=== PATIENT | female | born 1965 | race Caucasian/White ===

== ENCOUNTER 2018-05-31 16:00 | Outpatient (RCR) | payer OTHER, SELFPAY ==
--- NOTE | 2018-05-09 17:09 | HMH.PTOPEV ---
PT Outpatient Evaluation Rehab PT Outpatient Evaluation Start: 05/09/18 16:34 Freq: Status: Active Protocol: Document 05/09/18 16:34 VICK (Rec: 05/09/18 17:08 VICK [id number]) Electronically Signed By Javid Coombs, PT 05/09/18 16:34 Outpatient Therapy Subjective History Subjective History Pt. reports pain in the lower cervical spine region with radicular symptoms present in both arms. Pt. reports insidious onset of pain approximately one month ago. No recent diagnostics to report. Comorbidities include multiple joint OA and hx of lumbar spine bulging discs. Chief Complaint Pain Paresthesia Symptom Type Burning Tingling Symptoms Relieved By OTC Meds Activity Symptoms Aggravated By Sitting Prior Functional Limitations None Current Functional Limitations Desk Work/Reading Sleeping Symptom Description Constant but Variable Pain at Rest Activity Dependent Level of pain today (0-10) 8 Pain scale - at its best (0-10) 6 Pain scale - at its worst (0-10) 10 Cervical Eval Palpation Cervical Muscles R Cervical Paraspinal L Cervical Paraspinal R CT Junction L CT Junction Cervical/Thoracic Palpation Findings Tenderness Posture Head/C-Spine Posture Sitting Position Flexed Head/C-Spine Posture Standing Position Flexed Excess Extension Flexibility Deficits Upper Trapezius Muscle Length (R) Mild Tightness (L) Mild Tightness Pectoralis Minor Muscle Length (R) Mild Tightness (L) Mild Tightness Passive Joint Mobility Cervical PIVM Dec: L C4/5 L C5/6 L C6/7 WNL: R C4/5 R C5/6 R C6/7 AROM Cervical Spine Extension Active Range of WNL Motion (degrees) Cervical Spine Flexion Active Range of WNL Motion (degrees) Cervical Spine Right Lateral Flexion 38 Active Range of Motion (degrees) Cervical Spine Left Lateral Flexion 35 Active Range of Motion (degrees) Cervical Spine Right Rotation Active WNL Range of Motion (degrees)
== END 2018-05-31 16:01 | disposition home or self-care (01) ==
LOC: PT 16:00
PROVIDERS: Family Provider Family Medicine; PCP Family Medicine; Visit Provider Family Medicine
DX: M48.9 Spondylopathy, unspecified (principal)
CPT/HCPCS: 97010; 97012; 97014; 97110; 97163; G0283

== ENCOUNTER → 2019-04-29 16:33 | Outpatient (CLI) | payer BC, SELFPAY ==
--- NOTE | 2019-04-29 16:35 | MM_ITS ---
MM Dig screening mamm BI w/CAD ORDERING PHYSICIAN : Ariana Sexton PATIENT AGE: 54 years GENDER: Female COMPARISON: . August 2017, April 2016, December 2014, October 2012 INDICATION: Routine screening mammogram. No hormones. No new complaints. Family history. niece with breast cancer TECHNIQUE: Standard CC and MLO images were obtained. R2 CAD reviewed. Additional axillary cc views bilaterally included FINDINGS: Mild/Moderate breast density residual fibroglandular elements are most evident towards upper-outer quadrant right and left breast. No suspicious or dominant mass. No suspicious calcifications in either breast. . IMPRESSION: ...... Stable bilateral mammogram with no significant new findings. No new areas of concern Follow follow-up in one year recommended BI-RADS Category: 1 Negative RECOMMENDED FOLLOW-UP: 1YR 1 YEAR FOLLOW-UP (A letter has been sent to the patient regarding results of the study.)
== END ==
PROVIDERS: PCP Family Medicine; Visit Provider Obstetrics & Gynecology Gynecology
DX: Z12.31 Encounter for screening mammogram for malignant neoplasm of breast (principal)
CPT/HCPCS: 77067

== ENCOUNTER → 2020-05-01 16:11 | Outpatient (CLI) | payer BC, SELFPAY ==
--- NOTE | 2020-05-01 16:16 | MM_ITS ---
PROCEDURE: MM DIG SCREENING MAMM BI W/CAD Digital Breast Tomosynthesis Included CLINICAL INDICATION: SCREENING There is a history of breast cancer patient's niece diagnosed at age 32. COMPARISON: MG DMSB DIG MAMM-SCREEN REBEKAH from 05/09/2016 MG DMSB DIG MAMM-SCREEN REBEKAH W/CAD from 09/11/2017 MG DIG MAMM-SCREEN REBEKAH from 04/29/2019 TECHNIQUE: Standard CC and MLO images and 3D Tomosynthesis was obtained. R2 CAD reviewed. FINDINGS: Scattered diffuse fibroglandular densities are seen throughout both breasts and the findings are bilateral and symmetrical. There is no new or suspicious lesion in either breast and no suspicious microcalcifications. IMPRESSION: Fibrofatty parenchyma with no suspicious lesions seen BI-RAD Category: 1 Negative FOLLOW-UP: 1YR 1 Year Follow-up (A letter has been sent to the patient regarding results of the study.) Dictated Dr. Tulio Henson MD 05/05/2020 09:28 Dr. Tulio Khan MD in [facility] 05/05/2020 09:28
== END ==
PROVIDERS: PCP Family Medicine; Visit Provider Obstetrics & Gynecology Gynecology
DX: Z12.31 Encounter for screening mammogram for malignant neoplasm of breast (principal)
CPT/HCPCS: 77063; 77067

== ENCOUNTER → 2022-05-11 16:55 | Outpatient (CLI) | payer BC, SELFPAY ==
--- NOTE | 2022-05-11 17:04 | XR_ITS ---
PROCEDURE INFORMATION: Exam: XR Chest Exam date and time: 05/11/2022 5:14 PM Age: 57 years old Clinical indication: Pain; Left-sided; Additional info: Rib pain TECHNIQUE: Imaging protocol: Radiologic exam of the chest. Views: 2 views. COMPARISON: No relevant prior studies available. FINDINGS: Lungs: No lobar consolidation, pleural effusion or pulmonary edema. Pleural spaces: See Lungs finding. Heart/Mediastinum: Unremarkable. No cardiomegaly. Bones/joints: No visualized fracture. No pneumothorax. IMPRESSION: 1. No lobar consolidation, pleural effusion or pulmonary edema. 2. No visualized fracture. No pneumothorax.
== END ==
PROVIDERS: PCP Nurse Practitioner Family; Visit Provider Nurse Practitioner Family
DX: M85.80 Other specified disorders of bone density and structure, unspecified site (principal); R07.81 Pleurodynia
CPT/HCPCS: 71046

== ENCOUNTER → 2022-05-17 09:32 | Outpatient (CLI) | payer BC, SELFPAY ==
--- NOTE | 2022-05-17 09:36 | XR_ITS ---
FINAL REPORT TECHNIQUE: Bone densitometry calculations of the lumbar spine and left hip were obtained. CLINICAL HISTORY: osteopenia FINDINGS: DEXA BONE DENSITY AXIAL SKELETON Using L1-4, the bone mineral density of the spine is 0.911 g/cm2, corresponding to T-score of -1.2. Using the left hip, the bone mineral density of the femoral neck is 0.591 g/cm2, corresponding to a T-score of -2.3. NOTE: T-score: Standard deviation compared with peak bone mass of young adult mean. *Following the recommendations of the International Society of Bone densitometry, classification of hip BMD is based on the lower of two T-scores; total hip or femoral neck. IMPRESSION: Diminished bone mineral density of the lumbar spine and left hip consistent with osteopenia. FRAX 10 year fracture risk is 2.6% for a hip fracture and 16% for a major osteoporotic fracture. Reviewed, Interpreted and Dictated by Blu Sotelo MD Transcribed by Chelo Lee Authenticated and [facility]
== END ==
PROVIDERS: PCP Nurse Practitioner Family; Visit Provider Nurse Practitioner Family
DX: M85.89 Other specified disorders of bone density and structure, multiple sites (principal); R07.81 Pleurodynia
CPT/HCPCS: 77080

== ENCOUNTER → 2023-04-11 08:06 | Outpatient (CLI) | payer BC, SELFPAY ==
--- NOTE | 2023-04-11 08:10 | MM_ITS ---
PROCEDURE INFORMATION: Exam: MG Bilateral Screening 3D Mammography Exam date and time: 04/11/2023 8:10 AM Age: 57 years old Clinical indication: Screening examination TECHNIQUE: Imaging protocol: Bilateral Screening tomosynthesis and 2D mammography including computer-aided detection (CAD) when performed. COMPARISON: 1. MG MM DIG SCREENING MAMM BI W/CAD 05/01/2020 4:19 PM 2. MG MM DIG SCREENING MAMM BI W/CAD 04/29/2019 4:39 PM FINDINGS: MAMMOGRAPHY: Breast composition: The breasts are almost entirely fatty. Mass: None. Architectural distortion: None. Calcifications: No suspicious calcifications. Asymmetric density: None. Skin thickening: None. Axillary adenopathy: None. IMPRESSION: No mammographic evidence of malignancy. Annual screening is recommended unless otherwise clinically indicated. ASSESSMENT: BI-RADS Category 1: Negative
== END ==
PROVIDERS: PCP Nurse Practitioner Family; Visit Provider Obstetrics & Gynecology Gynecology
DX: Z12.31 Encounter for screening mammogram for malignant neoplasm of breast (principal)
CPT/HCPCS: 77063; 77067

== ENCOUNTER 2024-04-19 10:16 | Outpatient (CLI) | payer BC, SELFPAY ==
--- NOTE | 2024-04-19 10:19 | MM_ITS ---
PROCEDURE INFORMATION: Exam: MG Bilateral Screening 3D Mammography Exam date and time: 04/19/2024 10:07 AM Age: 59 years old Clinical indication: Screening mammogram TECHNIQUE: Imaging protocol: Bilateral Screening tomosynthesis and 2D mammography including computer-aided detection (CAD) when performed. COMPARISON: 1. MG MM DIG SCREENING MAMM BI W/CAD 04/11/2023 8:10 AM 2. MG MM DIG SCREENING MAMM BI W/CAD 05/01/2020 4:19 PM 3. MG MM DIG SCREENING MAMM BI W/CAD 04/29/2019 4:39 PM 4. MG DMSB DIG MAMM-SCREEN REBEKAH W/CAD 09/11/2017 5:00 PM FINDINGS: MAMMOGRAPHY: Breast composition: There are scattered areas of fibroglandular density. Mass: None. Architectural distortion: No new or suspicious architectural distortion. Calcifications: No new or suspicious calcifications are present Asymmetric density: No new or suspicious asymmetric density is present Skin thickening: None. Axillary adenopathy: None. IMPRESSION: No mammographic evidence of malignancy. Recommend annual screening mammography unless otherwise clinically indicated. ASSESSMENT: BI-RADS category 1: Negative.
== END 2024-04-19 23:59 | disposition home or self-care (01) ==
LOC: RAD 10:16
PROVIDERS: PCP Internal Medicine Adolescent Medicine; Visit Provider Obstetrics & Gynecology Gynecology
DX: Z12.31 Encounter for screening mammogram for malignant neoplasm of breast (principal)
CPT/HCPCS: 77063; 77067

== ENCOUNTER 2024-11-07 17:32 | Emergency (ER) | payer BC, SELFPAY ==
[2024-11-07 17:37] VITALS: BP 184/113; PULSE 92; RESP 18; TEMP 36.4; O2SAT 98; BMI 27.6
--- NOTE | 2024-11-07 17:42 | XR_ITS ---
PROCEDURE INFORMATION: Exam: XR Left Shoulder Exam date and time: 11/07/2024 6:47 PM Age: 59 years old Clinical indication: Injury or trauma; Fall; Other: Pain; Additional info: Left shoulder injury TECHNIQUE: Imaging protocol: Radiologic exam of the left shoulder. Views: 2 or more views. COMPARISON: CR XR SHOULDER LT MIN 2V 11/07/2024 6:47 PM FINDINGS: Bones/joints: Comminuted and significantly displaced fracture of the distal shaft of the left clavicle. Acromioclavicular and glenohumeral joints are normally aligned. No other acute fracture. Soft tissues: Normal. IMPRESSION: Distal left clavicle fracture
--- NOTE | 2024-11-07 17:46 | ED_ITS ---
Discharge Plan Disposition Patient Disposition: Home, Self-Care Condition: Good Prescriptions Prescriptions: New hydrocodone-acetaminophen 5-325 mg tablet 1 tab PO Q6H PRN (Reason: pain) Qty: 10 0RF No Action levothyroxine 150 mcg tablet PO 30 Days loratadine 10 mg capsule 10 mg PO DAILY oseltamivir [Tamiflu] 75 mg capsule 75 mg PO BID 5 Days Qty: 10 0RF Referrals Follow up/Referrals: Salty Jones DO [Staff Physician] - See instructions Ksenia Grayson APRN [Emergency Midlevel Provider] - See instructions Mahamed Mcgrath MD [Primary Care Provider] - See instructions Activity Restrictions/Add. Instructions Additional Instructions/Restrictions: Please call orthopedics tomorrow for follow-up. Wear your sling until evaluated further. You may take acetaminophen 1000 mg tonight and you may take ibuprofen 600 mg tonight. Your prescription for oxycodone will be sent to the pharmacy, please pick this up in the morning. Do not drive after taking this. Clinical Impressions Clinical Impression: Clavicle fracture Qualifiers: Encounter type: initial encounter Clavicle location: unspecified part of clavicle Fracture type: closed Fracture alignment: displaced Laterality: left Qualified Code(s): S42.002A - Fracture of unspecified part of left clavicle, initial encounter for closed fracture Instructions Patient Instructions: DI for Clavicle Fracture-Adult Print Language Print Language: Wolof Discharge ED Provider: Jean Rivas General Adult HPI <Ksenia Grayson APRN - Last Filed: 11/07/24 22:11> General Chief complaint: Extremity Injury, Upper Stated complaint: Ao02/13 RT shoulder inj Time Seen by Provider: 11/07/24 17:45 Mode of Arrival: Ambulatory Source of Information: Patient Limitations: No Limitations Description of Symptoms (Recalled from ER Triage Doc. by RN): PT fell on treadmill and has c/o left shoulder pain. pt is unable to move her arm. Brisk cap refill, strong pulse, sensation intact. -LOC/-BT History of Present Illness HPI narrative: Patient is a 59-year-old female who presents to the ED with complaints of a fall. Patient is having left upper extremity pain, decreased ROM after fall. Has not had anything for pain prior to arrival. Related Data Home Medications ?Medication ?Instructions ?Recorded ?Confirmed levothyroxine 150 mcg tablet PO 30 days 07/30/18 09/16/18 loratadine 10 mg capsule 10 mg PO DAILY 07/30/18 09/16/18 Previous Rx's ?Medication ?Instructions ?Recorded oseltamivir 75 mg capsule (Tamiflu) 75 mg PO BID 5 days #10 caps 09/16/18 hydrocodone 5 mg-acetaminophen 325 1 tab PO Q6H PRN pain #10 tabs 11/07/24 mg tablet Allergies Allergy/AdvReac Type Severity Reaction Status Date / Time No Known Drug Allergies (NO Allergy Unknown Verified 09/16/18 10:49 KNOWN DRUG ALLERGIES) [facility] <Ksenia Grayson APRN - Last Filed: 11/07/24 22:11> [facility] Disclaimer: The information contained in this section may have been updated after the patient was seen, as this information can be updated by other users. Social History (Updated 11/07/24 @ 22:11 by Ksenia Grayson APRN) Smoking Status: Never smoker alcohol intake: never current occupational status: employed Travel in the last 8 weeks: None household members: family housing: house Have you lived/traveled outside [place] in past 30 days?: No Contact w/someone who lives/traveled outside US past 30 days?: No Exposure to someone with infectious disease in past 14 days?: No Do you have a fever (greater than 100.4 F or 38 C)?: No Have you tested positive for COVID-19: No Exposed to someone with COVID-19 in past 14 days?: No Do you have a sore throat?: No Do you have a cough?: No Do you have any weakness?: No Do you have any diarrhea?: No Are you experiencing any unusual bleeding?: No Do you have any muscle aches/pain?: No Do you have any abdominal pain?: No Are you experiencing loss of taste or smell?: No <Ksenia Grayson APRN - Last Filed: 11/07/24 22:11> ROS Obtained: Yes Systems reviewed as appropriate & no additional complaints except as documented Physical Exam <Ksenia Grayson APRN - Last Filed: 11/07/24 22:11> General General appearance: alert and in no apparent distress Head Head exam: atraumatic and normocephalic Eye Eye exam: Present normal appearance and PERRL ENT ENT exam: Present normal exam Neck Neck exam: Present normal inspection and full ROM Chest Chest inspection: Present normal inspection, symmetric chest wall rise and tenderness Respiratory Respiratory exam: Present normal lung sounds bilaterally Cardiovascular Cardiovascular exam: Present regular rate Abdominal Exam Abdominal exam: Present soft and normal bowel sounds; Absent tenderness Extremities Exam Extremities exam: Present other (Anterior and posterior left shoulder tenderness, no range of motion of left shoulder, sensation and neurovascular status intact) Back Exam Back exam: Present normal inspection and full ROM Neurological Exam Neurological exam: Present alert and oriented X3 Psychiatric Psychiatric exam: Present normal affect and normal mood Skin Skin exam: Present warm and dry Medical Decision Making <Ksenia Grayson APRN - Last Filed: 11/07/24 22:11> Medical Records Screening: Per USPSTF and CDC recommendations, given the prevalence of disease in our region, it is our hospital?s policy to screen for HIV and viral Hepatitis for all patients aged 18 and over and those with ongoing risk factors. Shadi Inquiry Pt receiving controlled substance: No Shadi was queried for this patient: No Vital Signs: 11/07/24 17:37 11/07/24 19:29 11/07/24 20:46 Temperature 97.5 F L 98.2 F Temperature Source Oral Oral Pulse Rate 75 77 Pulse Rate [Right] 92 H Respiratory Rate 18 18 Blood Pressure 175/100 H 166/101 H Blood Pressure [Right Arm] 184/113 H Blood Pressure Mean [Right Arm] 136 Blood Pressure Source [Right Arm] Automatic Cuff Blood Pressure Position [Right Arm] Sitting 02 Sat by Pulse Oximetry 98 95 Oxygen Delivery Method Room Air Room Air Orders (Tests/Meds): ED MEDICATIONS Discontinued Medications Generic Name Dose Route Start Last Admin Trade Name Freq PRN Reason Stop Dose Admin Oxycodone HCl 10 mg 11/07/24 17:49 11/07/24 17:55 Oxycodone 5mg Immediate Release Tablet PO 12/07/24 17:48 10 mg QIDP PRN Administration Severe Pain (7-10) ORDERS Category Date Time Status CXR --portable [XR chest portable] Stat Exams 11/07/24 17:49 Completed Elbow XR left 2 views [XR elbow LT 2V] Stat Exams 11/07/24 17:49 Completed Humerus XR left [XR humerus LT] Stat Exams 11/07/24 17:49 Completed Shoulder XR left minimum 2 views [XR shoulder LT min 2V Exams 11/07/24 17:42 Completed ] Stat Medical Decision Narrative: In summary, patient is a 59-year-old female PMHx HTN who presents to the ED after a fall. Patient states she was walking on her treadmill when she looked at the window, lost her balance fell, landing on her left shoulder. Patient denies hitting her head. Denies loss of consciousness. Denies being on blood thinners. Patient states she is unable to move her left arm. She has full sensation intact. Patient has generalized chest wall tenderness, anterior and posterior left shoulder tenderness, pulses present. No skin tenting. No wrist or scaphoid tenderness noted. Denies fever, chills, headache, visual disturbances, shortness of breath, abdominal pain, nausea, vomiting. Differential diagnosis includes dislocated shoulder, fracture, rotator cuff tear, other ligamentous injury. Initial workup will be conducted with imaging and pain will be managed with oxycodone. Initial workup reviewed by me, imaging remarkable for a displaced distal left clavicular fracture. She states her pain has improved after the narcotic. Discussed with patient that she most likely has a ligamentous injury to the shoulder as well. Patient was placed in a sling. She was given a prescription for narcotic pain medication. Patient will call Dr. Robert Irving tomorrow to make a follow-up appointment. Advised return precautions to the ED. <Jean Rivas MD - Last Filed: 11/07/24 22:36> Vital Signs: 11/07/24 17:37 11/07/24 19:29 11/07/24 20:46 Temperature 97.5 F L 98.2 F Temperature Source Oral Oral Pulse Rate 75 77 Pulse Rate [Right] 92 H Respiratory Rate 18 18 Blood Pressure 175/100 H 166/101 H Blood Pressure [Right Arm] 184/113 H Blood Pressure Mean [Right Arm] 136 Blood Pressure Source [Right Arm] Automatic Cuff Blood Pressure Position [Right Arm] Sitting 02 Sat by Pulse Oximetry 98 95 Oxygen Delivery Method Room Air Room Air Orders (Tests/Meds): ED MEDICATIONS Discontinued Medications Generic Name Dose Route Start Last Admin Trade Name Freq PRN Reason Stop Dose Admin Oxycodone HCl 10 mg 11/07/24 17:49 11/07/24 17:55 Oxycodone 5mg Immediate Release Tablet PO 12/07/24 17:48 10 mg QIDP PRN Administration Severe Pain (7-10) ORDERS Category Date Time Status CXR --portable [XR chest portable] Stat Exams 11/07/24 17:49 Completed Elbow XR left 2 views [XR elbow LT 2V] Stat Exams 11/07/24 17:49 Completed Humerus XR left [XR humerus LT] Stat Exams 11/07/24 17:49 Completed Shoulder XR left minimum 2 views [XR shoulder LT min 2V Exams 11/07/24 17:42 Completed ] Stat Medical Decision Narrative: In summary, patient is a 59-year-old female PMHx HTN who presents to the ED after a fall. Patient states she was walking on her treadmill when she looked at the window, lost her balance fell, landing on her left shoulder. Patient denies hitting her head. Denies loss of consciousness. Denies being on blood thinners. Patient states she is unable to move her left arm. She has full sensation intact. Patient has generalized chest wall tenderness, anterior and posterior left shoulder tenderness, pulses present. No skin tenting. No wrist or scaphoid tenderness noted. Denies fever, chills, headache, visual disturbances, shortness of breath, abdominal pain, nausea, vomiting. Differential diagnosis includes dislocated shoulder, fracture, rotator cuff tear, other ligamentous injury. Initial workup will be conducted with imaging and pain will be managed with oxycodone. Initial workup reviewed by me, imaging remarkable for a displaced distal left clavicular fracture. She states her pain has improved after the narcotic. Discussed with patient that she most likely has a ligamentous injury to the shoulder as well. Patient was placed in a sling. She was given a prescription for narcotic pain medication. Patient will call Dr. Robert Irving tomorrow to make a follow-up appointment. Advised return precautions to the ED. I was consulted by the SUKHJINDER, and we discussed the complexity of the problems being addressed. I approved the treatment and management plan for this patient's care in the Emergency Department, thus performing a substantive portion of the medical decision making. Jean Rivas MD Critical Care <Ksenia Grayson, [employer] - Last Filed: 11/07/24 22:11> Critical Care Time Critical Care Time: No
--- NOTE | 2024-11-07 17:49 | XR_ITS ---
PROCEDURE INFORMATION: Exam: XR Left Humerus Exam date and time: 11/07/2024 6:47 PM Age: 59 years old Clinical indication: Injury or trauma; Fall; Other: Pain TECHNIQUE: Imaging protocol: Radiologic exam of the left humerus. Views: 2 or more views. Total images: 2 COMPARISON: CR XR HUMERUS LT 11/07/2024 6:47 PM FINDINGS: Bones/joints: Osteopenia. Acute displaced and overriding left clavicular fracture. No acute humeral fracture or joint dislocation. Poorly assessed by position are mild degenerative changes of the left shoulder and left elbow. No concerning bone lesions. Soft tissues: Unremarkable soft tissues. IMPRESSION: 1. Negative left humerus 2. Acute displaced and overriding left clavicular fracture.
--- NOTE | 2024-11-07 17:49 | XR_ITS ---
PROCEDURE INFORMATION: Exam: XR Chest Exam date and time: 11/07/2024 6:47 PM Age: 59 years old Clinical indication: Injury or trauma; Fall; Other: Pain TECHNIQUE: Imaging protocol: Radiologic exam of the chest. Views: 1 view. COMPARISON: CR XR CHEST 2V 05/11/2022 5:14 PM FINDINGS: Lungs: Unremarkable. No consolidation. Pleural spaces: Unremarkable. No pleural effusion. No pneumothorax. Heart/Mediastinum: Unremarkable. No cardiomegaly. Bones/joints: Displaced fracture of the distal shaft of the left clavicle. No other acute fracture. Osseous alignment is otherwise normal. IMPRESSION: Left clavicle fracture
--- NOTE | 2024-11-07 17:49 | XR_ITS ---
PROCEDURE INFORMATION: Exam: XR Left Elbow Exam date and time: 11/07/2024 6:47 PM Age: 59 years old Clinical indication: Injury or trauma; Fall; Other: Pain TECHNIQUE: Imaging protocol: Radiologic exam of the left elbow. Views: 1 or 2 views. COMPARISON: CR XR ELBOW LT 2V 11/07/2024 6:47 PM FINDINGS: Bones/joints: Normal. Soft tissues: Normal. IMPRESSION: No acute findings.
[2024-11-07] MEDS: OXYCODONE 5MG IMMEDIATE RELEASE TABLET 10 MG PO (17:55)
--- NOTE | 2024-11-07 17:59 | PC.NURSE ---
As per the MAR administered 10mg od Oxy IR
[2024-11-07 19:29] VITALS: BP 175/100; PULSE 75; O2SAT 95
--- NOTE | 2024-11-07 19:42 | PC.NURSE ---
Rounding complete; no needs at this time
--- NOTE | 2024-11-07 20:27 | PC.NURSE ---
Rounding done; no needs at this time
[2024-11-07 20:46] VITALS: BP 166/101; PULSE 77; RESP 18; TEMP 36.8; O2SAT 96
== END 2024-11-07 20:49 | disposition home or self-care (01) ==
PROVIDERS: Emergency Provider Emergency Medicine; PCP Internal Medicine Adolescent Medicine
DX: S42.002A Fracture of unspecified part of left clavicle, initial encounter for closed fracture (principal); M25.512 Pain in left shoulder; W18.39XA Other fall on same level, initial encounter; Y93.A1 Activity, exercise machines primarily for cardiorespiratory conditioning; Y92.9 Unspecified place or not applicable
CPT/HCPCS: 71045; 73030; 73060; 73070; 99283

== ENCOUNTER 2024-11-08 14:38 | Outpatient (CLI) | payer BC, SELFPAY ==
--- NOTE | 2024-11-08 14:54 | ECG_ITS ---
APPROVED REPORT Exam: Resting ECG HR:78 bpm ECG Measurements Heart Rate 78 AXES ME 154 P 44 QRSd 74 QRS 44 QT 381 T 26 QTc 414 Conclusion SINUS RHYTHM NORMAL ECG UNCONFIRMED REPORT Electronically signed by : Mahamed Mcgrath MD 11/08/2024 15:48:11
[2024-11-08 15:02] LABS: Microscopic, Urine URINE MICROSCOPIC (MICROSCOPIC)
--- NOTE | 2024-11-08 15:19 | XR_ITS ---
FINAL REPORT CLINICAL HISTORY: SOA COMPARISON: 11/07/2024 FINDINGS: No acute pulmonary density is evident. There is no evidence of effusion or other pleural disease. The mediastinum has a normal appearance. The cardiac silhouette is unremarkable. IMPRESSION: Unremarkable chest exam. Reviewed, Interpreted and Dictated by Piotr Rizzo MD Transcribed by Kaley Corona Authenticated and [facility]
[2024-11-08 15:25] LABS: Basophils % 0.2 % (0.1-2.0); Hematocrit 41.8 % (37.0-47.0); Lymphocytes # 3.1 K/mm3 (0.7-4.5); Lymphocytes % 30.7 % (10-50); Mean Corpuscular HGB Conc 33.5 g/dL (31.8-35.4); Mean Corpuscular Hemoglobin 30.4 pg (27.0-31.2); Mean Corpuscular Volume 90.9 fl (81-99); Monocytes # 0.7 K/mm3 (0.1-1.0); Monocytes % 6.8 % (1.7-9.3); Neutrophils # 6.2 K/mm3 (1.8-7.8); Neutrophils % 62.1 % (37.0-80.0); Platelet Count 341 K/mm3 (142-424); Red Cell Distribution Width 12.8 % (11.5-17.5)
[2024-11-08 15:47] LABS: Appearance,Urine CLEAR (Clear); Bilirubin,Urine Negative (Negative); Blood, Urine Negative (Negative); Color,Urine YELLOW (Yellow); Glucose,Urine (UA) Negative (Negative); Ketones,Urine Negative (Negative); Leukocyte Esterase,Urine Negative (Negative); Nitrate,Urine Negative (Negative); Protein,Urine Negative (Negative); Urobilinogen,Urine 0.2 EU/dl (0.2)
[2024-11-08 15:56] LABS: Amphetamine/Metha Screen,Urine Negative ng/ml (<1000); Benzodiazepines Screen,Urine Negative ng/ml (<200)
[2024-11-08 15:57] LABS: Barbiturates Screen,Urine Negative ng/ml (<200)
[2024-11-08 15:58] LABS: Cannabinoid Screen,Urine Negative ng/ml (<50); Cocaine Screen,Urine Negative ng/ml (<300)
[2024-11-08 15:59] LABS: Methadone Screen,Urine Negative ng/ml (<300)
[2024-11-08 16:00] LABS: Opiate Screen,Urine Negative ng/ml (<300); Phencyclidine Screen,Urine Negative ng/ml (<25)
[2024-11-08 16:26] LABS: Albumin Level 4.9 g/dl (3.5-5.0); Bacteria,Urine Trace /lpf; Chloride 106 mmol/L (98-107); Potassium 4.6 mmoL/L (3.5-5.1); Sodium 140 mmol/L (136-145)
[2024-11-08 16:29] LABS: Alanine Aminotransferase 38 U/L (12-78); Alkaline Phosphatase 121 U/L (38-126); Anion Gap 13.6 mEq/L (5-15); Aspartate Amino Transferase 44 U/L (14-36); Bilirubin,Total 0.9 mg/dl (0.2-1.3); Blood Urea Nitrogen 15 mg/dl (7-17); Calcium 9.7 mg/dl (8.4-10.2); Carbon Dioxide 25 mmol/L (22.0-30.0); Estimated Glomerular Filt Rate 64 ml/min (>60); GFR (African American) 77 ML/MIN (>60); Globulin 2.5 g/dL (1.3-3.2); Glucose 99 mg/dl (74-100); Total Protein,Serum 7.4 g/dl (6.3-8.2)
== END 2024-11-08 23:59 | disposition home or self-care (01) ==
LOC: RT 14:41
PROVIDERS: PCP Internal Medicine Adolescent Medicine; Visit Provider Orthopaedic Surgery
DX: Z01.818 Encounter for other preprocedural examination (principal); S42.002A Fracture of unspecified part of left clavicle, initial encounter for closed fracture
CPT/HCPCS: 36415; 71046; 80053; 80307; 81001; 85025; 87081; 93005

== ENCOUNTER 2025-01-07 13:58 | Outpatient (RCR) | payer BC, SELFPAY | END 2025-01-07 23:59 | disposition home or self-care (01) | LOC: PT 13:58 | PROVIDERS: Visit Provider Orthopaedic Surgery Adult Reconstructive Orthopaedic Surgery | DX: Z98.890 Other specified postprocedural states (principal) | CPT/HCPCS: 97110; 97163 ==

== ENCOUNTER 2025-02-14 08:38 | Outpatient (CLI) | payer BC, SELFPAY ==
--- NOTE | 2025-02-14 08:43 | XR_ITS ---
FINAL REPORT TECHNIQUE: Bone densitometry calculations of the lumbar spine and left hip were obtained. CLINICAL HISTORY: SCREENING COMPARISON: 05/17/2022 FINDINGS: Using L1-4, the bone mineral density of the spine is 0.889 g/cm2, corresponding to T-score of -1.4. Using the left hip, the bone mineral density of the femoral neck is 0.612 g/cm2, corresponding to a T-score of -2.1. Using the right hip, the bone mineral density of the femoral neck is 0.602 g/cm?, corresponding to a T-score of -2.2. NOTE: T-score: Standard deviation compared with peak bone mass of young adult mean. *Following the recommendations of the International Society of Bone densitometry, classification of hip BMD is based on the lower of two T-scores; total hip or femoral neck. IMPRESSION: Diminished bone mineral density of the lumbar spine and bilateral hips consistent with osteopenia. Reviewed, Interpreted and Dictated by Piotr Rizzo MD Transcribed by Misty Ardon Authenticated and [facility]
== END 2025-02-14 23:59 | disposition home or self-care (01) ==
LOC: RAD 08:39
PROVIDERS: PCP Internal Medicine Adolescent Medicine; Visit Provider Internal Medicine Adolescent Medicine
DX: M85.89 Other specified disorders of bone density and structure, multiple sites (principal); Z13.9 Encounter for screening, unspecified
CPT/HCPCS: 77080

== ENCOUNTER 2025-04-25 15:25 | Outpatient (CLI) | payer BC, SELFPAY ==
--- NOTE | 2025-04-25 15:28 | MM_ITS ---
PROCEDURE INFORMATION: Exam: MG Bilateral Screening 3D Mammography Exam date and time: 04/25/2025 3:33 PM Age: 60 years old Clinical indication: Screening examination TECHNIQUE: Imaging protocol: Bilateral Screening tomosynthesis and 2D mammography including computer-aided detection (CAD) when performed. COMPARISON: 1. MG MM DIG SCREENING MAMM BI W/CAD 04/19/2024 10:07 AM 2. MG MM DIG SCREENING MAMM BI W/CAD 04/11/2023 8:10 AM FINDINGS: MAMMOGRAPHY: Breast composition: There are scattered areas of fibroglandular density. Mass: None. Architectural distortion: None. Calcifications: No suspicious calcifications. Asymmetric density: None. Skin thickening: None. Axillary adenopathy: None. IMPRESSION: No mammographic evidence of malignancy. Annual screening is recommended unless otherwise clinically indicated. ASSESSMENT: BI-RADS Category 1: Negative.
== END 2025-04-25 23:59 | disposition home or self-care (01) ==
LOC: RAD 15:26
PROVIDERS: PCP Internal Medicine Adolescent Medicine; Visit Provider Obstetrics & Gynecology Gynecology
DX: Z12.31 Encounter for screening mammogram for malignant neoplasm of breast (principal); R92.323 Mammographic fibroglandular density, bilateral breasts
CPT/HCPCS: 77063; 77067